=== PATIENT | female | born 1990 | race Two or more races ===

== ENCOUNTER 2021-06-24 20:43 | Emergency (ER) | payer SELFPAY ==
[~2021-06-24] VITALS: Ht 152.4 cm; Wt 81.4 kg
--- NOTE | 2021-06-24 20:55 | NUR ---
EKG DONE IN TRIAGE.
--- NOTE | 2021-06-24 21:59 | NUR ---
pt c/o of vaginal bleeding yesterday with blood clots and lower abd pain. pt reports same symptoms plus fever/chills today. labs drawn, ermd at bedside earlier for eval/ attached to card/sp02/bp monitors. vss. bed in lpow, rails engaged, call light on lap.
[2021-06-24] MEDS ORDERED: SODIUM CHLORIDE FLUSH 10ML SYR IVF ONE (22:00)
[2021-06-24] MEDS ORDERED: SODIUM CHLORIDE 0.9% 1,000ML IVBOLUS ONE (22:00)
[2021-06-24 22:05] LABS: BASOPHILS % (AUTO) 0 % (0-1); EOSINOPHILS % (AUTO) 1 % (1-7); LYMPHOCYTES % (AUTO) 10 % (22-44); MEAN CORPUSCULAR HGB CONC 34.8 g/dL (32.4-35.8); MEAN PLATELET VOLUME 6.9 fL (7.4-10.4); MONOCYTES % (AUTO) 3 % (2-9); NEUTROPHILS % (AUTO) 86 % (42-75); PLATELET COUNT 295 x10^3/uL (130-400); RED BLOOD COUNT 4.27 x10^6/uL (3.82-5.3); RED CELL DISTRIBUTION WIDTH 12.5 % (9.6-15.2)
--- NOTE | 2021-06-24 22:05 | NUR ---
A1 PT REPORTS 5 PADS AN HOUR. LMP IN MARCH PT REPORTS BEING 10 WEEKS
[2021-06-24] MEDS ORDERED: METHYLERGONOVINE 0.2 MG/ML IM ONE (22:30)
--- NOTE | 2021-06-24 22:35 | NUR ---
Patient is resting comfortably in bed. Bed in lowest, rails engaged, call light on lap. Vital Signs within normal limits. WCTM. nadn. at bedsdie pt ambulated to bathroom with steady gait 10 mins ago. pt urinated and stated blood in urine.
[2021-06-24 23:30] VITALS: BP 112/56
--- NOTE | 2021-06-24 23:54 | NUR ---
Patient/Caregiver given discharge instructions and they have confirmed that they understand the instructions. Patient PUSHED OUT IN WHEELCHAIR BY . NAD, all questions answered appropriately, denies additional needs at this time. No personal belongings left in room after discharge.
== END 2021-06-24 23:56 | disposition home or self-care (01) ==
LOC: ED 21:00
DX: O03.9 Complete or unspecified spontaneous abortion without complication (principal); R00.0 Tachycardia, unspecified
CPT/HCPCS: 36415; 84702; 85025; 86850; 86900; 93005; 96360; 96372; 99284; J2210; J7030